=== PATIENT | female | born 1995 | race African-American/Black ===

== ENCOUNTER 2022-03-18 14:00 | Observation (INO) | payer OTHER ==
[~2022-03-18 14:00] MED LIST: Iopamidol 300 61% 100 ML VIAL FS ONE
[2022-03-18] MEDS ORDERED: Morphine 4 MG/ML VIAL ONE (14:38)
[2022-03-18] MEDS ORDERED: Ondansetron PF 4 MG/2 ML Vial ONE (14:39)
[2022-03-18] MEDS ORDERED: Ketorolac Tromethamine 30 MG/ML VIAL ONE (14:39)
[2022-03-18 15:04] LABS: #Eosinphils 0.1 10x3/uL (0.0-0.5); #Monocytes 0.4 10x3/uL (0.0-1.1); #Neutrophils 4.4 10x3/uL (1.5-8.4); %Basophils 0.5 % (0.0-2.0); %Eosinophils 1.9 % (0.0-6.0); %Lymphocytes 31.7 % (18.0-47.0); %Monocytes 5.7 % (0.0-10.0); %Neutrophils 59.9 % (40.0-75.0); Bilirubin Neg (Negative); Blood, Urine 10 (Negative); Clarity Clear (Clear); Glucose, Urine (Dipstick) Normal (Negative); Hemoglobin 13.7 g/dL (12.0-15.5); Ketone, Urine Negative (Negative); Leukocyte 25 (Negative); Mean Corpuscular HGB CONC 33.4 g/dL (32.0-36.0); Mean Corpuscular Hemoglobin 30.1 pg (27.0-33.0); Mean Corpuscular Volume 90.1 fl (81.6-98.3); Nitrite Negative (Negative); Platelet Count 345 10x3/uL (150-450); Protein, Urine (Dipstick) Negative (Neg-Trace); RBC Distribution Width 13.1 % (11.5-14.5); Red Blood Cell (RBC) Count 4.55 10x6/uL (3.90-5.03); White Blood Cell (WBC) Count 7.4 10x3/uL (3.5-10.5)
[2022-03-18 15:05] LABS: Pregnancy Test - Urine (BHCG) Negative (Negative); Pregu Control Background? CLEAR/WHITE (CLR/WHITE); Pregu Control Bar Appear? YES (CONTROL BAR)
[2022-03-18 15:07] LABS: BHCG - Serum Negative (NEGATIVE); Pregs Control Background? CLEAR/WHITE (CLR/WHITE); Pregs Control Bar Appear? YES (CONTROL BAR)
[2022-03-18 15:11] LABS: Bacteria/HPF Rare-Few HPF (None Seen); Squamous Epithelial 0-3 HPF (0-3)
[2022-03-18 15:16] LABS: ALT (SGPT) 35 U/L (8-55); AST (SGOT) 22 U/L (5-34); Albumin 4.3 g/dL (3.5-5.0); Alkaline Phosphatase 112 U/L (40-110); Anion Gap 14 mmol/L (10-20); BUN (Urea Nitrogen) 13 mg/dL (7.0-18.7); Bilirubin, Total 0.3 mg/dL (0.2-1.2); Calc. Creatinine Clearance 0 mL/min (70-130); Calcium 10.1 mg/dL (7.8-10.44); Carbon Dioxide 24 mmol/L (22-29); Chloride 103 mmol/L (98-107); Estimated GFR 97; Globulin 4.3 g/dL (2.4-3.5); Glucose 104 mg/dL (70-105); Lipase 24 U/L (8-78); Potassium 3.7 mmol/L (3.5-5.1); Protein, Total 8.6 g/dL (6.0-8.3); Sodium 137 mmol/L (136-145)
[2022-03-18] MEDS ORDERED: Lidocaine Viscous Sol 2% 15 ml UD Cup ONE (15:45)
[2022-03-18] MEDS ORDERED: Ondansetron PF 4 MG/2 ML Vial IVP PRN (19:26)
[2022-03-18] MEDS ORDERED: hydrALAZINE 20 MG/ML VIAL SLOW IVP PRN (19:27)
[2022-03-18] MEDS ORDERED: Cepastat Lozenges 1 LOZ PO PRN (19:34)
[2022-03-18] MEDS ORDERED: Morphine 4 MG/ML VIAL SLOW IVP PRN (19:37)
[2022-03-18] MEDS ORDERED: Potassium Chloride 10 MEQ in Dextrose 5%-Lactated Ringers 1,000 ML IV SCH (19:45)
[2022-03-18 20:36] LABS: SARS-CoV-2 NAA Rapid Test Not Detected (NotDetected)
[2022-03-18] MEDS ORDERED: Famotidine/PF 20 mg/2ml Vial SLOW IVP SCH (21:00)
[2022-03-18] MEDS ORDERED: Famotidine/PF 20 mg/2ml Vial ONE (21:18)
[2022-03-19 04:05] LABS: #Eosinphils 0.1 10x3/uL (0.0-0.5); #Monocytes 0.5 10x3/uL (0.0-1.1); #Neutrophils 2.9 10x3/uL (1.5-8.4); %Basophils 0.5 % (0.0-2.0); %Eosinophils 2.4 % (0.0-6.0); %Lymphocytes 38.4 % (18.0-47.0); %Monocytes 8.2 % (0.0-10.0); %Neutrophils 50.2 % (40.0-75.0); Hemoglobin 12.4 g/dL (12.0-15.5); Mean Corpuscular HGB CONC 33.2 g/dL (32.0-36.0); Mean Corpuscular Hemoglobin 29.9 pg (27.0-33.0); Mean Corpuscular Volume 89.9 fl (81.6-98.3); Mean Platelet Volume 10.3 fl (7.4-10.4); Platelet Count 299 10x3/uL (150-450); Red Blood Cell (RBC) Count 4.15 10x6/uL (3.90-5.03); White Blood Cell (WBC) Count 5.8 10x3/uL (3.5-10.5)
[2022-03-19 04:23] LABS: ALT (SGPT) 26 U/L (8-55); AST (SGOT) 15 U/L (5-34); Albumin 3.5 g/dL (3.5-5.0); Alkaline Phosphatase 78 U/L (40-110); Anion Gap 12 mmol/L (10-20); BUN (Urea Nitrogen) 11 mg/dL (7.0-18.7); Bilirubin, Total 0.5 mg/dL (0.2-1.2); Calc. Creatinine Clearance 0 mL/min (70-130); Calcium 8.9 mg/dL (7.8-10.44); Carbon Dioxide 23 mmol/L (22-29); Chloride 109 mmol/L (98-107); Estimated GFR 109; Globulin 3.5 g/dL (2.4-3.5); Glucose 101 mg/dL (70-105); Potassium 3.5 mmol/L (3.5-5.1); Sodium 140 mmol/L (136-145)
== END 2022-03-19 11:20 | disposition home or self-care (01) ==
LOC: CSHERS 14:00 → INTOOBSV 18:08 → CSHERHOLD 18:08
PROVIDERS: ADMIT Internal Medicine; ATTEND Family Medicine
DX: K43.6 Other and unspecified ventral hernia with obstruction, without gangrene (principal); Z20.822 Contact with and (suspected) exposure to COVID-19; Z79.899 Other long term (current) drug therapy; Z82.49 Family history of ischemic heart disease and other diseases of the circulatory system; Z83.3 Family history of diabetes mellitus
CPT/HCPCS: 36415; 71045; 74018; 74177; 80053; 81003; 81015; 81025; 83605; 83690; 84703; 85025; 96361; 96374; 96375; J1885; J2270; J2405; J3480; Q9967; S0028; U0002

== ENCOUNTER 2023-09-27 15:38 | Emergency (ER) | payer OTHER, SELFPAY ==
[2023-09-27] MEDS ORDERED: Prochlorperazine 10 MG/2 ML VIAL ONE (16:49)
[2023-09-27] MEDS ORDERED: diphenhydrAMINE 50 MG/ML VIAL ONE (16:49)
[2023-09-27] MEDS ORDERED: Dexamethasone 10 MG/ML VIAL ONE (16:49)
== END 2023-09-27 18:27 | disposition home or self-care (01) ==
LOC: CSHERS 15:38
DX: G43.919 Migraine, unspecified, intractable, without status migrainosus (principal)
CPT/HCPCS: 96372; 96374; 96375; J0780; J1100; J1200